=== PATIENT | male | born 1965 | race Caucasian/White ===

== ENCOUNTER → 2018-02-01 | Outpatient (CLI) | payer MEDICARE ==
[2018-02-03 15:12] LABS: ALDOSTERONE <1.0 ng/dL (0.0-30.0)
[2018-02-04 12:58] LABS: RENIN ACTIVITY <0.167 ng/mL/hr (0.167-5.380)
== END ==
LOC: OD 13:03
PROVIDERS: ATTEND Physician Assistant Medical
DX: I15.1 Hypertension secondary to other renal disorders (principal); I10 Essential (primary) hypertension; R06.02 Shortness of breath; R53.83 Other fatigue
CPT/HCPCS: 36415; 82088; 83880; 84244

== ENCOUNTER → 2018-04-06 | Outpatient (CLI) | payer MEDICARE ==
--- NOTE | 2018-04-06 10:22 | RADIOLOGY REPORT (SQ) ---
EXAM DESCRIPTION: CTA HEAD COMPLETED DATE/TIME: 04/06/2018 9:48 am REASON FOR STUDY: HEADACHE (R55), VISUAL DISTURBANCES (H53.10) I10 ESSENTIAL (PRIMARY) HYPERTENSION R55 SYNCOPE AND COLLAPSE H53.10 UNSPECIFIED SUBJECTIVE VISUAL DISTURBANCES COMPARISON: None. TECHNIQUE: Post IV contrast scanning, thin section axial imaging through the brain to evaluate the a rterial structures. Source and MIP images are saved and reviewed on PACS. Advanced 3D imaging as volume-rendering, MIPs, SSD performed? yes additional 3D reconstructions were generated on independent workstation by the radiologist and saved to PACS. All CT scanners at this facility use dose modulation, iterative reconstruction, and/or weight based d osing when appropriate to reduce radiation dose to as low as reasonably achievable (ALARA). [facility]: Dose Right [facility]: CareDose [facility]: Dose Right [facility]: Teradose 4D [facility]: [facility] CONTRAST TYPE AND DOSE: contrast/concentration: Isovue 370.00 mg/ml; Total Contrast Delivered: 80.0 ml; Total Saline Delivered: 75.0 ml RENAL FUNCTION: CREATININE 1.2 LIMITATIONS: None. FINDINGS: [place]: The anterior, middle, posterior cerebral arteries are all patent. No ev idence of aneurysm or focal stenosis. Moderate atherosclerotic irregularity of the right and left pa rasellar carotid artery POSTERIOR CIRCULATION: The distal vertebral arteries are patent as is the basilar artery. No aneurysm . BRAIN: No gross enhancing lesions as visualized. The superior cerebral hemispheres are not included in the field of view. BONES: Intact as visualized. SINUSES: No fluid or mucosal thickening. OTHER: At the bottom edge of the field of view there is heavy atherosclerotic calcification of the ca rotid bifurcation which are incompletely included in the field of view. Carotid Doppler is recommend ed for follow-up. IMPRESSION: Atherosclerotic change bilateral parasellar carotid arteries without high-grade stenosis . [place] otherwise unremarkable. At the bottom edge of the field of view there is heavy atherosclerotic calcification at the carotid b ifurcations which is incompletely evaluated. Recommend follow-up carotid Doppler exam. TECHNICAL DOCUMENTATION: JOB ID: [id number] Quality ID # [id number]: Final reports with documentation of one or more dose reduction techniques (e.g., Au tomated exposure control, adjustment of the mA and/or kV according to patient size, use of iterative reconstruction technique) 2010 [employer]- All Rights Reserved Reading location - IP/workstation name: [email or web address]
--- NOTE | 2018-04-06 10:57 | RADIOLOGY REPORT (SQ) ---
EXAM DESCRIPTION: [facility] DUPLEX ART/[place] FLOW COMPLETED DATE/TIME: 04/06/2018 10:20 am REASON FOR STUDY: HTN (I10) I10 ESSENTIAL (PRIMARY) HYPERTENSION R55 SYNCOPE AND COLLAPSE H53.10 UNSPECIFIED SUBJECTIVE VISUAL DISTURBANCES COMPARISON: None. TECHNIQUE: Realtime and static grayscale images acquired. Selected color Doppler, velocities and spe ctral images recorded. LIMITATIONS: Large patient, midline bowel gas. Renal artery origins off the aorta were difficult to visualize FINDINGS: RIGHT KIDNEY: RENAL ARTERY VELOCITIES: At the renal hilum, 103 cm/sec. Segmental artery velocity 91 cm/sec. RENAL VEIN: Color doppler flow present, patent. VELOCITY RATIO: 1.3. Normal waveforms. KIDNEY: 11 cm in length without hydronephrosis, cysts, masses, or stones. Mild increased cortical echogenicity with cortical thinning. LEFT KIDNEY: RENAL ARTERY VELOCITIES: At the renal hilum, 88 cm/sec. Segmental artery velocity 48 cm/sec. RENAL VEIN: Color doppler flow present, patent. VELOCITY RATIO: 1.1. Normal waveforms. KIDNEY: 11 cm in length without hydronephrosis, cysts, masses, or stones. Mild increased cortical echogenicity with cortical thinning. BLADDER: Normal. OTHER: No other significant finding. IMPRESSION: NO DOPPLER EVIDENCE OF HEMODYNAMICALLY SIGNIFICANT RENAL ARTERY STENOSIS. Mild renal cortical thinning and increased echogenicity COMMENT: NORMAL RENAL ARTERY/AORTA VELOCITY RATIO IS LESS THAN OR EQUAL TO 3.5. TECHNICAL DOCUMENTATION: JOB ID: [id number] [employer]- All Rights Reserved Reading location - IP/workstation name: [email or web address]
== END ==
LOC: RAD 08:29
PROVIDERS: ATTEND Physician Assistant Medical
DX: I10 Essential (primary) hypertension (principal); R55 Syncope and collapse; H53.10 Unspecified subjective visual disturbances
CPT/HCPCS: 70496; 82565; 93976